=== PATIENT | female | born 1950 | race Caucasian/White ===

== ENCOUNTER → 2019-03-15 | Outpatient (CLI) | payer MEDICARE, BC | END | disposition home or self-care (01) | LOC: PCVCCLINIC 15:00 | PROVIDERS: ATTEND Internal Medicine | DX: I47.1 Supraventricular tachycardia (principal); I87.2 Venous insufficiency (chronic) (peripheral); E78.5 Hyperlipidemia, unspecified; Z87.891 Personal history of nicotine dependence | CPT/HCPCS: 36415; 80061; 93005; G0463 ==

== ENCOUNTER → 2019-05-31 | Outpatient (CLI) | payer MEDICARE, BC ==
--- NOTE | 2019-05-31 15:32 | PCVCIMAG ---
EXAM: BILATERAL SUPERFICIAL VENOUS DUPLEX INDICATION: Leg pain and swelling. FINDINGS: Right leg: No thrombus in the common femoral, main femoral, or popliteal veins. These veins are compressible. Right Great Saphenous Vein: At the saphenofemoral junction the diameter is 10.6 mm, in the mid thigh it is 4.7 mm, and in the calf it is 3.2 mm. There is not significant venous insufficiency/reflux throughout. Venous insufficiency/reflux duration is 0 seconds. Right Small Saphenous Vein: At the saphenopopliteal junction the diameter is 6.1 mm, and in the calf it is 3.5 mm. There is not significant venous insufficiency/reflux throughout. Venous insufficiency/reflux duration is 0 seconds. There is a cranial extension present. Left leg: No thrombus in the common femoral, main femoral, or popliteal veins. These veins are compressible. Left Great Saphenous Vein: At the saphenofemoral junction the diameter is 3.2 mm, in the mid thigh it is 2.4 mm, and in the calf it is not visualized likely related to prior ablation. There is not significant venous insufficiency/reflux throughout. Venous insufficiency/reflux duration is 0 seconds. Left Small Saphenous Vein: At the saphenopopliteal junction the diameter is 8.2 mm, and in the calf it is 5.5 mm. There is significant venous insufficiency/reflux throughout. Venous insufficiency/reflux duration is 3.9 seconds. There is not a cranial extension present. IMPRESSION: Right Great Saphenous Vein: No significant venous insufficiency/reflux is present as noted above. Right Small Saphenous Vein: No significant venous insufficiency/reflux is present as noted above. Left Great Saphenous Vein: No significant venous insufficiency/reflux is present as noted above. Vein is diminutive in size likely related to prior ablation procedure. Left Small Saphenous Vein: Significant venous insufficiency/reflux is present as noted above. Incidental note is made of a 1.7 x 2.0 x 2.7 cm right popliteal cyst. LOC:[id number]
--- NOTE | 2019-06-09 12:04 | PCVCIMAG ---
APPROVED REPORT Study performed: 05/31/2019 14:26:25 EXAM: Comprehensive 2D, Doppler, and color-flow Echocardiogram Patient Location: Echo lab Status: routine BSA: 1.91 HR: 61 bpmBP: 140/78 mmHg Rhythm: NSR Other Information Study Quality: Adequate Indications Palpitations Tachycardia Chest Pain 2D Dimensions IVSd: 10.97 (7-11mm) LVDd: 41.08 mm PWd: 10.52 (7-11mm)Ascending Ao: 30.78 (22-36mm) LVDs: 29.78 (25-40mm) Left Atrium: 37.66 (27-40mm) Aortic Root: 29.16 mm LV Single Plane 4CH: 60.72 % LV Single Plane 2CH: 59.63 % Biplane EF: 60.0 % Volumes Left Atrial Volume (Systole) Single Plane 4CH: 44.50 mLSingle Plane 2CH: 51.01 mL LA ESV Index: 26.00 mL/m2 Aortic Valve AoV Peak Juwan.: 1.19 m/s AO Peak Gr.: 5.63 mmHgLVOT Max P.03 mmHg LVOT Max V: 0.87 m/s Mitral Valve E/A Ratio: 1.3 MV Decel. Time: 373.30 ms MV E Max Juwan.: 0.73 m/s MV A Juwan.: 0.57 m/s IVRT: 103.81 ms Pulmonary Valve PV Peak Juwan.: 0.78 m/sPV Peak Gr.: 2.43 mmHg Pulmonary Vein P Vein S: 0.40 m/sP Vein A: 0.38 m/s P Vein D: 0.62 m/sP Vein A Dur.: 152.2 msec P Vein S/D Ratio: 0.65 Tricuspid Valve TR Peak Juwan.: 2.70 m/s TR Peak Gr.: 29.27 mmHg TV Vmax: 0.46 m/s Left Ventricle The left ventricle is normal size. There is normal LV segmental wall motion. There is normal left ventricular wall thickness. Left ventricular systolic function is normal. The left ventricular ejection fraction is within the normal range. LVEF is 60-65%. The left ventricular diastolic function is normal. Right Ventricle The right ventricle is normal size. The right ventricular systolic function is normal. Atria The left atrium size is normal. The right atrium size is normal. Aortic Valve The aortic valve is normal in structure. No aortic regurgitation is present. There is no aortic valvular stenosis. Mitral Valve The mitral valve is normal in structure. Mild mitral regurgitation. No evidence of mitral valve stenosis. There is mild anterior mitral valve prolapse. Tricuspid Valve The tricuspid valve is normal in structure. Mild-moderate tricuspid regurgitation with PAP of 35 mmHg. Pulmonic Valve The pulmonary valve is normal in structure. Mild to moderate pulmonic regurgitation. Great Vessels The aortic root is normal in size. IVC is normal in size and collapses >50% with inspiration. Pericardium There is no pericardial effusion. There is no pleural effusion. <Conclusion> Left ventricular systolic function is normal. There is normal LV segmental wall motion. LVEF is 60-65%. The aortic valve is normal in structure. No aortic regurgitation or stenosis The mitral valve is normal in structure. Mild mitral regurgitation. Mild-moderate tricuspid regurgitation with pulmonary artery pressure of 35 mmHg. There is no pericardial effusion.
== END | disposition home or self-care (01) ==
LOC: PCVCIMAG 13:17
PROVIDERS: ATTEND Internal Medicine
DX: M79.669 Pain in unspecified lower leg (principal); M79.89 Other specified soft tissue disorders; I87.2 Venous insufficiency (chronic) (peripheral); Z87.891 Personal history of nicotine dependence
CPT/HCPCS: 93306; 93970

== ENCOUNTER → 2019-06-14 | Outpatient (CLI) | payer MEDICARE, BC ==
[~2019-06-14] MED LIST: REGADENOSON 0.4 MG/5 ML DISP.SYRIN. IV ONE
--- NOTE | 2019-06-14 13:00 | PCVCIMAG ---
APPROVED REPORT Imaging Protocol: Rest Tc-99m/Stress Tc-99m 1 day Study performed: 06/14/2019 09:01:28 Indication: Chest pain, Palpitations, Pre-Operative CV evaluation Patient Location: Out-Patient Stress Nurse: Gosia Ludwig RN [place] Tech:Debbie Alarcon [facility] Ht: 5 ft 6 in Wt: 180 lbs BSA: 1.91 m2 HR: 69 bpm BP: 193/92 mmHg BMI: 29.0 Rhythm: Sinus Rhythm Medical History Medical History: Hyperlipidemia, Former Smoker Medications: Metoprolol Allergies: Propofol Cardiac Risk Factors: Age Pretest Chest Pain Characteristics: No chest pain Exercise History: Physically active Meds Held (24 hrs): Metoprolol Resting Data Rest SPECT myocardial perfusion imaging was performed in supine position 45 minutes following the intravenous injection of 9.6 mCi of Tc-99m Sestamibi. Time of rest injection: 839 Date: 06/14/2019 Administration Route: IV Administration Site: Right Wrist Pharmacologic Stress Pharmacologic stress test was performed by injecting Regadenoson 0.4 mg IV push over 10-15 seconds immediately followed by the intravenous injection of 34.2 mCi of Tc-99m Sestamibi. Time of stress injection: 944 Date: 06/14/2019 Administration Route: IV Administration Site: Right Wrist Gated Stress SPECT was performed 45 minutes after stress injection. The images were gated to evaluate regional wall motion and calculate left ventricular ejection fraction. Stress Test Details Stress Test: Pharmacologic stress testing performed using 0.4 mg of regadenoson per 5 mL given IV over 10 seconds. Reason for pharmacologic stress test: physical limitation, knee issues. HRMax Heart Rate (APMHR): 149 bpm Resting HR: 69 bpmTarget HR (85% APMHR): 126 bpm Max HR Achieved: 105 bpm % of APMHR: 70 Recovery HR: 89 bpm BP Resting BP: 193/92 mmHg Max BP: 169/78 mmHg Recovery BP: 159/76 mmHg ECG Resting ECG: Sinus Rhythm Stress ECG: Sinus Tachycardia with ST changes ST Change: None Maximum ST Deviation: 0 mm Arrhythmia: PVC's Recovery ECG: Sinus Rhythm Recovery ST Change: Normal Recovery ST Deviation: 0 mm Recovery Arrhythmia: None Clinical Reason for Termination: Completed protocol Stress Symptoms: Chest pressure, Dyspnea Symptoms resolved with caffeine. Stress ECG Conclusion ECG: Non-ischemic Clinical: Non-ischemic Study Quality Study: Good Study Data Post stress, the left ventricular ejection was 74%.. SSS: 2 SRS: 10 SDS: 1 TID = 0.97. Perfusion No evidence of stress induced ischemia or prior myocardial infarction. Wall Motion Normal left ventricular size and function with no regional wall motion abnormalities. Nuclear Conclusion No evidence of stress induced ischemia or prior myocardial infarction. Normal left ventricular size and function with no regional wall motion abnormalities. Post stress, the left ventricular ejection was 74%. No prior study available for comparison. Interpreted by: Rikki Lynn MD Electronically Approved: 06/14/2019 11:57:36 <Conclusion> ECG: Non-ischemic Clinical: Non-ischemic
== END | disposition home or self-care (01) ==
LOC: PCVCIMAG 08:21
PROVIDERS: ATTEND Internal Medicine
DX: Z01.810 Encounter for preprocedural cardiovascular examination (principal); R07.89 Other chest pain; R00.2 Palpitations; Z87.891 Personal history of nicotine dependence
CPT/HCPCS: 78452; 93017; A9500; J2785